=== PATIENT | female | born 1940 | race Caucasian/White ===

== ENCOUNTER 2016-09-14 10:30 | Emergency (ER) | payer MEDICARE, BC ==
[2016-09-14 10:58] LABS: BASOPHILS % (AUTO) 1 % (0-3); EOSINOPHILS % (AUTO) 2 % (0-9); HEMATOCRIT 41 % (35-47); MEAN CORPUSCULAR HGB CONC 32.1 gm/dl (32.0-36.0); MONOCYTES % (AUTO) 6.8 % (0-12)
[2016-09-14 11:08] VITALS: TEMP 97.8
[2016-09-14 11:13] LABS: ALBUMIN 3.4 gm/dl (3.4-5.0); CALCIUM 9.2 mg/dl (8.5-10.1); POTASSIUM 4.1 mMol/L (3.5-5.1)
[2016-09-14 13:50] VITALS: O2SAT 96
[2016-09-14 13:51] VITALS: RESP 18
[2016-09-14 13:52] VITALS: PULSE 62
[2016-09-14 13:53] VITALS: BP 133/62
== END 2016-09-14 13:40 | disposition home or self-care (01) | DRG 563 ==
LOC: ED 10:30
DX: S29.012A Strain of muscle and tendon of back wall of thorax, initial encounter (principal); S23.3XXA Sprain of ligaments of thoracic spine, initial encounter; Z79.01 Long term (current) use of anticoagulants
CPT/HCPCS: 71101; 71250; 74176; 80053; 85025; 85610; 93005; 99283; 99285

== ENCOUNTER 2016-11-20 08:51 | Emergency (ER) | payer MEDICARE, BC ==
[2016-11-20 08:59] VITALS: TEMP 97.6
[2016-11-20 09:29] LABS: APPEARANCE,URINE Clear; BILIRUBIN,URINE NEGATIVE (NEGATIVE); COLOR,URINE Yellow; GLUCOSE, URINE (UA) NEGATIVE (NEGATIVE); KETONES,URINE NEGATIVE (NEGATIVE); NITRATE,URINE NEGATIVE (NEGATIVE); OCCULT BLOOD,URINE TRACE LYSED (NEG-TRACE); UROBILINOGEN,URINE 0.2 (0.2-1.0 EU)
[2016-11-20 09:32] LABS: LEUKOCYTE ESTERASE ,URINE NEGATIVE (NEGATIVE)
[2016-11-20 09:57] LABS: BASOPHILS % (AUTO) 0 % (0-3); EOSINOPHILS % (AUTO) 3 % (0-9); HEMATOCRIT 40 % (35-47); MEAN CORPUSCULAR HGB CONC 32.8 gm/dl (32.0-36.0); MEAN CORPUSCULAR VOLUME 90 fL (81-99); NEUTROPHILS % (AUTO) 77.6 % (37-80)
[2016-11-20] MEDS ORDERED: ONDANSETRON HCL 4 MG/2 ML SOL ONE (10:04)
[2016-11-20] MEDS ORDERED: ONDANSETRON HCL 4 MG/2 ML SOL IV ONE (10:10)
[2016-11-20 10:16] LABS: ALBUMIN 3.1 gm/dl (3.4-5.0); ALT 22 IU/L (14-63); CALCIUM 8.8 mg/dl (8.5-10.1); GLOM FILT RATE 34 mL/min (>60); POTASSIUM 3.6 mMol/L (3.5-5.1); SODIUM 139 mMol/L (136-145)
[2016-11-20] MEDS ORDERED: APAP/HYDROCODONE 325/5 TAB ONE (12:11)
[2016-11-20] MEDS ORDERED: APAP/HYDROCODONE 325/5 TAB PO ONE (12:15)
[2016-11-20 14:25] VITALS: BP 130/64; PULSE 73; RESP 20; O2SAT 94
== END 2016-11-20 14:11 | disposition home or self-care (01) | DRG 544 ==
LOC: ED 08:51
DX: M48.54XA Collapsed vertebra, not elsewhere classified, thoracic region, initial encounter for fracture (principal); R33.9 Retention of urine, unspecified; Z79.01 Long term (current) use of anticoagulants
CPT/HCPCS: 36415; 71010; 74176; 80053; 81003; 84484; 85025; 85610; 93005; 96374; 99284; 99285; J2405